=== PATIENT | female | born 1965 | race Caucasian/White ===

== ENCOUNTER 2024-02-22 09:50 | Emergency (ER) | payer OTHER, SELFPAY ==
[2024-02-22 09:55] VITALS: BP 151/90; PULSE 88; TEMP 36.6; O2SAT 96; BMI 27.5
[2024-02-22] MEDS: LIDOCAINE/EPINEPHRINE/TETRACAINE 3 ML GEL.PF.APP 1.5 ML TOPICAL (10:54)
[2024-02-22] MEDS: LIDOCAINE HCL 1%-EPINEPHRINE 1:100,000 20 ML MDV INJ (11:35)
--- NOTE | 2024-02-22 12:10 | ED_ITS ---
HPI - Skin/Abscess/Foreign Bdy General Chief complaint: Skin/Abscess/Foreign Body Stated complaint: ABDOMINAL PAIN Time Seen by Provider: 02/22/24 09:53 Source: patient Mode of arrival: walk-in History of Present Illness HPI narrative: Patient presents to ED complaining of an abscess in the left groin area. She has had an abscess on her back before. She noticed the swelling recently and its gotten more red and swollen and tender so she came in for evaluation. She has tried to soak it in the warm bath but it continues to get worse. No fevers nausea vomiting no back pain or belly pain. She does have chronic cough and shortness of breath due to smoking and COPD. Related Data Previous Rx's ?Medication ?Instructions ?Recorded doxycycline hyclate 100 mg capsule 100 mg PO BID 7 days #14 caps 02/22/24 Allergies Allergy/AdvReac Type Severity Reaction Status Date / Time codeine Allergy Severe Verified 02/22/24 09:59 Review of Systems ROS Status of ROS 10 or more systems reviewed and unremark able except as noted in history and below Exam Narrative Exam Narrative: General: alert, no acute distress Cardiovascular: regular rate and rhythm, normal peripheral perfusion. Respiratory: Lungs CTA, respirations non labored. Extremities: no deformity, no trauma. Neurological: oriented x 4, LOC appropriate for age. 1 x 1 cm area of induration swelling and tenderness in the left groin area consistent with abscess Constitutional Vital Signs, click to edit/add: Last Vital Signs Temp 97.8 F 02/22/24 09:55 Pulse 88 02/22/24 09:55 Resp 22 H 02/22/24 09:55 BP 151/90 H 02/22/24 09:55 Pulse Ox 96 02/22/24 09:55 O2 Del Method Room Air 02/22/24 09:55 Course Vital Signs Vital signs: Vital Signs Temperature 97.8 F 02/22/24 09:55 Pulse Rate 88 02/22/24 09:55 Respiratory Rate 22 H 02/22/24 09:55 Blood Pressure 151/90 H 02/22/24 09:55 Pulse Oximetry 96 02/22/24 09:55 Oxygen Delivery Method Room Air 02/22/24 09:55 Temperature 97.8 F 02/22/24 09:55 Pulse Rate 88 02/22/24 09:55 Respiratory Rate 22 H 02/22/24 09:55 Blood Pressure 151/90 H 02/22/24 09:55 Pulse Oximetry 96 02/22/24 09:55 Oxygen Delivery Method Room Air 02/22/24 09:55 MDM - Skin/Abscess/Foreign Bdy MDM Narrative Medical decision making narrative: Let was used for numbing. Then 1% lidocaine with epi about 5 mL injected locally. Incision and drainage done with an 11 blade, moderate amount of purulent fluid expressed and packing placed. Patient instructed to return in 2 days for packing change if needed or follow-up with family doctor. Will place patient on doxycycline. Return to ER if worsening symptoms. Differential Diagnosis Differential diagnosis: Likely abscess of skin or subcutaneous tissue and cellulitis Medical Records Attestation: I reviewed the patient's medical records. Discharge Plan Discharge Stand Alone Forms: Portal Instructions Chief Complaint: Skin/Abscess/Foreign Body Clinical Impression: Abscess of skin or subcutaneous tissue Patient Disposition: Home, Self-Care Time of Disposition Decision: 12:13 Condition: Good Mode of Transportation: Private Vehicle Prescriptions / Home Meds: New doxycycline hyclate 100 mg capsule 100 mg PO BID 7 Days Qty: 14 0RF Print Language: Panamanian Instructions: Abscess (ED), Incision and Drainage (ED) Referrals: Physician,Non-Staff, MD [Primary Care Provider] - 1 week Procedures ED ID Incision & Drainage I&D Type: abcess Site: other (Left groin) Side (if applicable): left Sedation/analgesia: none Anesthetic used: lidocaine 1% Technique: incised with #11 blade Amount of fluid (mL): 5 Irrigation: Yes Packing used: iodoform
[2024-02-22 12:23] VITALS: BP 148/88; PULSE 88; O2SAT 98
== END 2024-02-22 12:24 | disposition home or self-care (01) ==
PROVIDERS: Emergency Provider Emergency Medicine
DX: L02.214 Cutaneous abscess of groin (principal); J44.9 Chronic obstructive pulmonary disease, unspecified; F17.200 Nicotine dependence, unspecified, uncomplicated
CPT/HCPCS: 10060; 99284